=== PATIENT | female | born 2000 | race Two or more races ===

== ENCOUNTER 2023-01-04 15:17 | Emergency (ER) | payer OTHER ==
[~2023-01-04] VITALS: Ht 154.9 cm; Wt 61.4 kg
[2023-01-04 15:47] VITALS: TEMP 98.7
[2023-01-04 15:59] LABS: BASOPHILS % (AUTO) 0.2 % (0.0-2.0); EOSINOPHILS % (AUTO) 0.1 % (1.0-6.0); HEMATOCRIT 41.1 % (36-46); LYMPHOCYTES # (AUTO) 0.4 K/uL (1.0-4.8); LYMPHOCYTES % (AUTO) 4.2 % (22.0-44.0); MEAN CORPUSCULAR HGB CONC 33.9 G/dL (31.0-37.0); MEAN CORPUSCULAR VOLUME 91 fL (80-100); MONOCYTES # (AUTO) 0.2 K/uL (0.1-1.0); MONOCYTES % (AUTO) 2.3 % (2.0-9.0); PLATELET COUNT (AUTO) 346 K/uL (150-450); RED CELL DISTRIBUTION WIDTH 14.4 % (11.5-14.5); WHITE BLOOD COUNT (AUTO) 10.7 K/uL (4.5-11.0)
[2023-01-04 16:01] LABS: NEUTROPHILS % (AUTO) 93.2 % (40.0-70.0)
[2023-01-04 16:08] LABS: ANION GAP 16 mmol/L (8-16); CALCIUM, TOTAL 10.1 mg/dL (8.8-10.5); CARBON DIOXIDE 22 mmol/L (22-29); CHLORIDE 102 mmol/L (98-107); CREATININE 0.81 mg/dL (0.60-1.30); GLOMERULAR FILTR. RATE CALC > 60 mL/min (>60); GLUCOSE,RANDOM 136 mg/dL (70-110); POTASSIUM 3.4 mmol/L (3.5-5.1); SODIUM SERUM 140 mmol/L (136-145); UREA NITROGEN, BLOOD 10 mg/dL (7-18)
[2023-01-04 16:15] LABS: ALANINE AMINOTRANSFERASE 16 U/L (12-78); ALBUMIN 4.8 g/dL (3.4-5.0); ALKALINE PHOSPHATASE 79 U/L (46-116); ASPARTATE AMINOTRANSFERASE 21 U/L (15-37); BILIRUBIN,TOTAL 0.7 mg/dL (0.1-1.0); LIPASE 17 U/L (16-77); TOTAL PROTEIN, SERUM 8.7 g/dL (6.4-8.2)
[2023-01-04 16:19] LABS: PLATELET MORPHOLOGY COMMENT GIANT PLTS PRESENT; RBC MORPHOLOGY COMMENT NORMAL RBC MORPH
[2023-01-04] MEDS ORDERED: SODIUM CHLORIDE 0.9% 2,000 ML IV ONE (16:30)
[2023-01-04] MEDS ORDERED: ACETAMINOPHEN 500 MG TABLET PO ONE (16:30)
[2023-01-04] MEDS ORDERED: ONDANSETRON HCL 4 MG/2 ML VIAL IVP ONE (16:30)
[2023-01-04] MEDS ORDERED: DIPHENOXYLATE/ATROP 2.5-0.025 MG TABLET PO ONE (16:30)
[2023-01-04 16:53] LABS: APPEARANCE,URINE CLEAR (CLEAR); BILIRUBIN,URINE NEGATIVE (NEGATIVE); COLOR,URINE YELLOW (YELLOW); GLUCOSE, URINE (UA) TRACE mg/dL (NEGATIVE); KETONES,URINE =>150 mg/dL (NEGATIVE); LEUKOCYTE ESTERASE ,URINE NEGATIVE (NEGATIVE); NITRATE,URINE NEGATIVE (NEGATIVE); OCCULT BLOOD,URINE NEGATIVE (NEGATIVE); PROTEIN,URINE 30-70 mg/dL (NEGATIVE); UROBILINOGEN,URINE <=1.0 mg/dL (<=1.0)
[2023-01-04 16:59] LABS: BACTERIA,URINE Rare /HPF (None Seen); RBC,URINE 0-2 /HPF (0-2); SQUAMOUS EPITHELIAL CELL,UR Many /LPF (None Seen); WBC,URINE 0-2 /HPF (0-5)
[2023-01-04] MEDS ORDERED: DiphenhydrAMINE HCL 25 MG CAPSULE PO ONE (17:45)
[2023-01-04] MEDS ORDERED: ACET-66 PO (18:25)
[2023-01-04] MEDS ORDERED: DIPH-654 PO (18:25)
[2023-01-04] MEDS ORDERED: ONDA-104 PO (18:25)
[2023-01-04 18:30] VITALS: BP 128/82; PULSE 76; RESP 16
== END 2023-01-04 19:08 | disposition home or self-care (01) ==
LOC: EMS 15:17
DX: K52.9 Noninfective gastroenteritis and colitis, unspecified (principal)
CPT/HCPCS: 99284; 96374; 96361; 80053; 81001; 83690; 84703; 85025; 36415; J2405; J7030

== ENCOUNTER 2023-05-10 12:59 | Emergency (ER) | payer OTHER ==
[~2023-05-10] VITALS: Ht 152.4 cm; Wt 63.6 kg
[~2023-05-10 12:59] MED LIST: ONDA-104 PO
[2023-05-10 13:32] VITALS: TEMP 97.6
[2023-05-10 13:40] LABS: BASOPHILS % (AUTO) 0.2 % (0.0-2.0); EOSINOPHILS % (AUTO) 0 % (1.0-6.0); HEMATOCRIT 39.4 % (36-46); HEMOGLOBIN 13.6 g/dL (12.0-16.0); LYMPHOCYTES # (AUTO) 0.5 K/uL (1.0-4.8); LYMPHOCYTES % (AUTO) 5.4 % (22.0-44.0); MEAN CORPUSCULAR HEMOGLOBIN 31.9 pg (26.0-34.0); MEAN CORPUSCULAR HGB CONC 34.5 G/dL (31.0-37.0); MEAN CORPUSCULAR VOLUME 92 fL (80-100); MONOCYTES # (AUTO) 0.3 K/uL (0.1-1.0); MONOCYTES % (AUTO) 2.9 % (2.0-9.0); NEUTROPHILS # (AUTO) 8.9 K/uL (1.8-7.7); PLATELET COUNT (AUTO) 275 K/uL (150-450); RED BLOOD CELL COUNT(AUTO) 4.27 MIL/uL (4.00-5.20); RED CELL DISTRIBUTION WIDTH 13.3 % (11.5-14.5); WHITE BLOOD COUNT (AUTO) 9.7 K/uL (4.5-11.0)
[2023-05-10 13:42] LABS: APPEARANCE,URINE CLEAR (CLEAR); BILIRUBIN,URINE NEGATIVE (NEGATIVE); COLOR,URINE LIGHT YELLOW (YELLOW); GLUCOSE, URINE (UA) NEGATIVE (NEGATIVE); KETONES,URINE 80-100 mg/dL (NEGATIVE); LEUKOCYTE ESTERASE ,URINE NEGATIVE (NEGATIVE); NITRATE,URINE NEGATIVE (NEGATIVE); OCCULT BLOOD,URINE NEGATIVE (NEGATIVE); PROTEIN,URINE TRACE mg/dL (NEGATIVE); SPECIFIC GRAVITIY, URINE 1.025 (1.003-1.030); UROBILINOGEN,URINE <=1.0 mg/dL (<=1.0)
[2023-05-10] MEDS ORDERED: IOHEXOL 350 MG/ML 100 ML VIAL ONE (13:42)
[2023-05-10] MEDS ORDERED: SODIUM CHLORIDE 0.9% 100 ML ONE (13:42)
[2023-05-10 13:46] LABS: NEUTROPHILS % (AUTO) 91.5 % (40.0-70.0)
[2023-05-10] MEDS: SODIUM CHLORIDE 0.9% 1,000 ML IV ONE (13:54)
[2023-05-10] MEDS: DiphenhydrAMINE HCL 50 MG/ML VIAL IVP ONE (13:55)
[2023-05-10] MEDS: METOCLOPRAMIDE HCL 5 MG/ML 2 ML VIAL IVP ONE (13:57)
[2023-05-10] MEDS: FAMOTIDINE 20 MG/2 ML VIAL IVP ONE (13:58)
[2023-05-10 14:00] LABS: ANION GAP 14 mmol/L (8-16); CALCIUM, TOTAL 9.4 mg/dL (8.8-10.5); CARBON DIOXIDE 23 mmol/L (22-29); CHLORIDE 101 mmol/L (98-107); CREATININE 0.79 mg/dL (0.60-1.30); GLOMERULAR FILTR. RATE CALC > 60 mL/min (>60); GLUCOSE,RANDOM 131 mg/dL (70-110); POTASSIUM 3.3 mmol/L (3.5-5.1); SODIUM SERUM 138 mmol/L (136-145); UREA NITROGEN, BLOOD 12 mg/dL (7-18)
[2023-05-10 14:06] LABS: ALANINE AMINOTRANSFERASE 19 U/L (12-78); ALBUMIN 4.7 g/dL (3.4-5.0); ALKALINE PHOSPHATASE 73 U/L (46-116); ASPARTATE AMINOTRANSFERASE 20 U/L (15-37); BILIRUBIN,TOTAL 0.7 mg/dL (0.1-1.0); LIPASE 19 U/L (16-77); TOTAL PROTEIN, SERUM 7.7 g/dL (6.4-8.2)
[2023-05-10] MEDS: POTASSIUM CHLORIDE 20 MEQ ER TABLET PO ONE (15:41)
[2023-05-10] MEDS ORDERED: ONDA-104 PO (15:57)
[2023-05-10 16:16] VITALS: BP 134/90; PULSE 64; RESP 18
== END 2023-05-10 16:39 | disposition home or self-care (01) ==
LOC: EMS 12:59
DX: R19.7 Diarrhea, unspecified (principal); R11.2 Nausea with vomiting, unspecified; F12.90 Cannabis use, unspecified, uncomplicated
CPT/HCPCS: 99285; 74177; 96374; 76705; 96375; 96361; 80053; 81003; 83690; 84703; 85025; 36415; 93005; J1200; J3490; J2765; Q9967; J7030; J7050

== ENCOUNTER 2023-07-13 11:58 | Emergency (ER) | payer OTHER ==
[~2023-07-13] VITALS: Ht 152.4 cm; Wt 63.6 kg
[2023-07-13 12:37] LABS: BASOPHILS % (AUTO) 0.3 % (0.0-2.0); EOSINOPHILS % (AUTO) 0 % (1.0-6.0); HEMATOCRIT 40.4 % (36-46); HEMOGLOBIN 13.7 g/dL (12.0-16.0); LYMPHOCYTES # (AUTO) 0.5 K/uL (1.0-4.8); LYMPHOCYTES % (AUTO) 3.3 % (22.0-44.0); MEAN CORPUSCULAR HEMOGLOBIN 31.1 pg (26.0-34.0); MEAN CORPUSCULAR HGB CONC 33.9 G/dL (31.0-37.0); MEAN CORPUSCULAR VOLUME 92 fL (80-100); MONOCYTES # (AUTO) 0.4 K/uL (0.1-1.0); MONOCYTES % (AUTO) 2.3 % (2.0-9.0); NEUTROPHILS # (AUTO) 14.5 K/uL (1.8-7.7); PLATELET COUNT (AUTO) 352 K/uL (150-450); RED BLOOD CELL COUNT(AUTO) 4.39 MIL/uL (4.00-5.20); RED CELL DISTRIBUTION WIDTH 13.4 % (11.5-14.5); WHITE BLOOD COUNT (AUTO) 15.4 K/uL (4.5-11.0)
[2023-07-13 12:38] LABS: NEUTROPHILS % (AUTO) 94.1 % (40.0-70.0)
[2023-07-13 12:53] LABS: APPEARANCE,URINE CLEAR (CLEAR); BILIRUBIN,URINE NEGATIVE (NEGATIVE); COLOR,URINE LIGHT YELLOW (YELLOW); GLUCOSE, URINE (UA) TRACE mg/dL (NEGATIVE); KETONES,URINE =>150 mg/dL (NEGATIVE); LEUKOCYTE ESTERASE ,URINE SMALL (NEGATIVE); NITRATE,URINE NEGATIVE (NEGATIVE); OCCULT BLOOD,URINE MODERATE (NEGATIVE); PH,URINE 7.5 (5.0-8.0); PROTEIN,URINE 30-70 mg/dL (NEGATIVE); SPECIFIC GRAVITIY, URINE 1.025 (1.003-1.030); UROBILINOGEN,URINE <=1.0 mg/dL (<=1.0)
[2023-07-13 12:53] LABS: ANION GAP 21 mmol/L (8-16); CALCIUM, TOTAL 9.4 mg/dL (8.8-10.5); CARBON DIOXIDE 19 mmol/L (22-29); CHLORIDE 100 mmol/L (98-107); CREATININE 1.08 mg/dL (0.60-1.30); GLOMERULAR FILTR. RATE CALC > 60 mL/min (>60); GLUCOSE,RANDOM 159 mg/dL (70-110); POTASSIUM 3.1 mmol/L (3.5-5.1); SODIUM SERUM 140 mmol/L (136-145); UREA NITROGEN, BLOOD 13 mg/dL (7-18)
[2023-07-13 12:54] LABS: RBC MORPHOLOGY COMMENT NORMAL RBC MORPH
[2023-07-13 12:59] LABS: ALANINE AMINOTRANSFERASE 20 U/L (12-78); ALBUMIN 4.9 g/dL (3.4-5.0); ALKALINE PHOSPHATASE 84 U/L (46-116); ASPARTATE AMINOTRANSFERASE 21 U/L (15-37); BILIRUBIN,TOTAL 0.6 mg/dL (0.1-1.0); HCG,QUANTITATIVE < 1 mIU/mL (0-6); LIPASE 12 U/L (16-77); TOTAL PROTEIN, SERUM 8.4 g/dL (6.4-8.2)
[2023-07-13] MEDS: SODIUM CHLORIDE 0.9% 1,000 ML IV ONE (13:16)
[2023-07-13] MEDS: HALOPERIDOL LACTATE 5 MG/ML VIAL IM ONE (13:17)
[2023-07-13] MEDS: DiphenhydrAMINE HCL 50 MG/ML VIAL IM ONE (13:17)
[2023-07-13 13:50] LABS: BACTERIA,URINE Few /HPF (None Seen); SQUAMOUS EPITHELIAL CELL,UR Moderate /LPF (None Seen)
[2023-07-13] MEDS: POTASSIUM CHLORIDE 20 MEQ ER TABLET PO ONE (13:59)
[2023-07-13 15:07] VITALS: TEMP 99.1
[2023-07-13] MEDS ORDERED: ONDA-104 PO (15:08)
[2023-07-13 15:18] VITALS: BP 126/80; PULSE 79; RESP 16
== END 2023-07-13 15:18 | disposition home or self-care (01) ==
LOC: EMS 11:58
DX: R11.10 Vomiting, unspecified (principal); F41.9 Anxiety disorder, unspecified; K21.9 Gastro-esophageal reflux disease without esophagitis; F12.90 Cannabis use, unspecified, uncomplicated
CPT/HCPCS: 99284; 96360; 80053; 81001; 83690; 84702; 85025; 36415; 87086; 87186; 96372; J1200; J1630

== ENCOUNTER 2024-03-10 12:03 | Emergency (ER) | payer OTHER ==
[~2024-03-10] VITALS: Ht 154.9 cm; Wt 68.2 kg
[2024-03-10 12:25] VITALS: TEMP 98.2
[2024-03-10 12:37] LABS: COVID AG,FIA SOURCE NASAL SWAB
[2024-03-10 12:53] LABS: BASOPHILS % (AUTO) 0.2 % (0.0-2.0); EOSINOPHILS % (AUTO) 0 % (1.0-6.0); HEMATOCRIT 42.2 % (36-46); HEMOGLOBIN 14.8 g/dL (12.0-16.0); LYMPHOCYTES # (AUTO) 0.5 K/uL (1.0-4.8); LYMPHOCYTES % (AUTO) 4.4 % (22.0-44.0); MEAN CORPUSCULAR HEMOGLOBIN 32.9 pg (26.0-34.0); MEAN CORPUSCULAR VOLUME 94 fL (80-100); MONOCYTES # (AUTO) 0.3 K/uL (0.1-1.0); MONOCYTES % (AUTO) 2.6 % (2.0-9.0); PLATELET COUNT (AUTO) 353 K/uL (150-450); RED BLOOD CELL COUNT(AUTO) 4.49 MIL/uL (4.00-5.20); RED CELL DISTRIBUTION WIDTH 12.9 % (11.5-14.5); WHITE BLOOD COUNT (AUTO) 10.8 K/uL (4.5-11.0)
[2024-03-10 12:56] LABS: NEUTROPHILS % (AUTO) 92.8 % (40.0-70.0)
[2024-03-10 13:00] LABS: INFLUENZA TYPE A NEGATIVE FOR TYPE A (NEGATIVE); INFLUENZA TYPE B NEGATIVE FOR TYPE B (NEGATIVE); SARS-COV2 (COVID) ANTIGEN,FIA Negative (Negative)
[2024-03-10 13:09] LABS: ANION GAP 12 mmol/L (8-16); CALCIUM, TOTAL 9.6 mg/dL (8.8-10.5); CARBON DIOXIDE 25 mmol/L (22-29); CHLORIDE 103 mmol/L (98-107); CREATININE 0.93 mg/dL (0.60-1.30); GLOMERULAR FILTR. RATE CALC > 60 mL/min (>60); GLUCOSE,RANDOM 144 mg/dL (70-110); POTASSIUM 3.7 mmol/L (3.5-5.1); SODIUM SERUM 140 mmol/L (136-145); UREA NITROGEN, BLOOD 9 mg/dL (7-18)
[2024-03-10 13:22] LABS: HCG,QUANTITATIVE 1 mIU/mL (0-6); LIPASE 16 U/L (16-77)
[2024-03-10 13:27] LABS: APPEARANCE,URINE CLEAR (CLEAR); BILIRUBIN,URINE NEGATIVE (NEGATIVE); COLOR,URINE LIGHT YELLOW (YELLOW); GLUCOSE, URINE (UA) TRACE mg/dL (NEGATIVE); KETONES,URINE 40-60 mg/dL (NEGATIVE); LEUKOCYTE ESTERASE ,URINE NEGATIVE (NEGATIVE); NITRATE,URINE NEGATIVE (NEGATIVE); OCCULT BLOOD,URINE NEGATIVE (NEGATIVE); PH,URINE 8.5 (5.0-8.0); PROTEIN,URINE 30-70 mg/dL (NEGATIVE); SPECIFIC GRAVITIY, URINE 1.025 (1.003-1.030); UROBILINOGEN,URINE <=1.0 mg/dL (<=1.0)
[2024-03-10] MEDS: SODIUM CHLORIDE 0.9% 1,000 ML IV ONE ×2 (15:21→17:21)
[2024-03-10] MEDS: KETOROLAC TROMETHAMINE 30 MG/ML VIAL IVP ONE (15:22)
[2024-03-10] MEDS: ONDANSETRON HCL 4 MG/2 ML VIAL IVP ONE ×2 (15:22→17:21)
[2024-03-10] MEDS: OMEPRAZOLE 20 MG CAPSULE PO ONE (16:17)
[2024-03-10] MEDS: LORazepam 2 MG/ML VIAL IVP ONE (16:17)
[2024-03-10] MEDS: MAG HYDROX/ALUMINUM HYD/SIMETH ES 30 ML SUSPENSION UDCUP PO ONE (16:17)
[2024-03-10] MEDS: ACETAMINOPHEN 500 MG TABLET PO ONE (16:17)
[2024-03-10 16:30] VITALS: BP 141/72; PULSE 70; RESP 16; O2SAT 98
[2024-03-10] MEDS: MORPHINE SULFATE 4 MG/ML SYRINGE IVP ONE (17:21)
[2024-03-10] MEDS ORDERED: MAG30ORA11 PO (18:49)
[2024-03-10] MEDS ORDERED: ACET-66 PO (18:49)
[2024-03-10] MEDS ORDERED: OMEP20 PO (18:49)
== END 2024-03-10 19:00 | disposition home or self-care (01) ==
LOC: EMS 12:03
DX: K52.9 Noninfective gastroenteritis and colitis, unspecified (principal); R10.13 Epigastric pain; K21.9 Gastro-esophageal reflux disease without esophagitis; F12.90 Cannabis use, unspecified, uncomplicated; Z87.19 Personal history of other diseases of the digestive system; Z20.822 Contact with and (suspected) exposure to COVID-19
CPT/HCPCS: 99285; 96374; 96375; 76700; 96361; 87426; 80048; 81003; 83690; 84702; 85025; 87804; 36415; 96376; J1885; J2060; J2270; J2405; J7030